=== PATIENT | female | born 1990 | race Caucasian/White ===

== ENCOUNTER 2018-06-07 23:30 | Emergency (ER) | payer OTHER ==
[2018-06-07] MEDS: Nitroglycerin 0.4 MG Tab.SL SL PRN (23:55)
[2018-06-08] MEDS: Nitroglycerin 0.4 MG Tab.SL SL PRN (00:10)
[2018-06-08] MEDS ORDERED: HYDROmorphone 0.5 MG/0.5 ML SYRINGE IVPUSH ONE (00:26)
--- NOTE | 2018-06-08 00:43 | EDM.PDOC ---
ED HPI GENERAL MEDICAL PROBLEM - General Chief Complaint: Chest Pain Stated Complaint: CHEST PAIN Time Seen by Provider: 06/07/18 23:35 Source of Information: Reports: Patient, Family History Limitations: Reports: No Limitations - History of Present Illness INITIAL COMMENTS - FREE TEXT/NARRATIVE: Is a 28-year-old female. For about the last 5 hours she has been having some left sided chest pain going into her left shoulder and down her left arm with numbness and tingling in her entire hand. About an hour and a half prior to coming to the ER she developed some dizziness and sweating along with these symptoms and some nausea but no vomiting. She was somewhat concerned so she comes to the ER for evaluation. The total time she's been having this left-sided chest pain has been for about 5 hours. He describes more of the chest pain as a dull aching sensation. The numbness and tingling that seemed to go down her left arm tend to be starting in the base of the left neck area but she is not really tender there on palpation. Left Shoulder Pain Score (Numeric/FACES): 4 - Related Data Allergies Allergy/AdvReac Type Severity Reaction Status Date / Time amoxicillin Allergy Hives Verified 06/07/18 23:40 methylprednisolone Allergy Tachycardia Verified 06/07/18 23:40 [From Solu-Medrol] Home Meds: Home Meds . 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 Denies: Fever, Chills HEENT: Reports: No Symptoms Respiratory: Denies: Shortness of Breath, Cough Cardiovascular: Reports: Chest Pain, Lightheadedness. Denies: Edema Endocrine: Reports: No Symptoms GI/Abdominal: Reports: Nausea. Denies: Abdominal Pain, Diarrhea, Vomiting : Reports: No Symptoms Musculoskeletal: Reports: No Symptoms Skin: Reports: No Symptoms Neurological: Reports: No Symptoms Psychiatric: Reports: No Symptoms Hematologic/Lymphatic: Reports: No Symptoms ED EXAM, GENERAL - Physical Exam Exam: See Below Exam Limited By: No Limitations General Appearance: Alert, WD/WN, No Apparent Distress Eye Exam: Bilateral Eye: Normal Inspection Ears: Normal External Exam Nose: Normal Inspection Throat/Mouth: Normal Inspection, Normal Lips, Normal Voice, No Airway Compromise Head: Normocephalic Neck: Supple Respiratory/Chest: No Respiratory Distress, Lungs Clear, Normal Breath Sounds Cardiovascular: Regular Rate, Rhythm, No Murmur GI/Abdominal: Soft Back Exam: Full Range of Motion Extremities: Normal Inspection, Normal Range of Motion Neurological: Alert, Oriented Psychiatric: Normal Affect, Normal Mood Skin Exam: Warm, Dry EKG INTERPRETATION EKG Date: 06/07/18 Time: 23:36 EKG Interpretation Comments: Normal sinus rhythm with tachycardia, no acute ST or T-wave elevation, she does have the appearance of diffuse ST depression or possible ischemia but this could be a repolarization abnormality considering her age. Course - Vital Signs Last Recorded V/S: Last Vital Signs Temp 98.1 F 06/07/18 23:35 Pulse 104 H 06/07/18 23:35 Resp 16 06/07/18 23:35 BP 117/66 06/08/18 00:10 Pulse Ox 100 06/07/18 23:35 - Orders/Labs/Meds Orders: Active Orders 24 hr Category Date Time Status EKG 12 Lead [EKG Documentation Completion] [RC] STAT Care 06/07/18 23:48 Active CXR [Chest 1V Frontal] [CR] Stat Exams 06/07/18 23:48 Taken Nitroglycerin [Nitrostat] Med 06/07/18 23:48 Active 0.4 mg SL Q5M PRN Medication Orders Nitroglycerin (Nitrostat) 0.4 mg SL Q5M PRN PRN Reason: Chest Pain Last Admin: 06/08/18 00:10 Dose: 0.4 mg Admin: 06/07/18 23:55 Dose: 0.4 mg Labs: Laboratory Tests 06/07/18 06/07/18 06/08/18 Range/Units 23:45 23:45 01:55 WBC 8.81 (3.98-10.04) K/mm3 RBC 4.84 (3.98-5.22) M/mm3 Hgb 14.1 (11.2-15.7) gm/L Hct 42.3 (34.1-44.9) % MCV 87.4 (79.4-94.8) fl MCH 29.1 (25.6-32.2) pg MCHC 33.3 (32.2-35.5) g/dl RDW Std Deviation 41.5 (36.4-46.3) fL Plt Count 262 (182-369) K/mm3 MPV 9.9 (9.4-12.3) fl Neut % (Auto) 47.6 (34.0-71.1) % Lymph % (Auto) 43.8 (19.3-51.7) % [place] % (Auto) 6.9 (4.7-12.5) % Eos % (Auto) 1.1 (0.7-5.8) Baso % (Auto) 0.5 (0.1-1.2) % Neut # (Auto) 4.19 (1.56-6.13) K/mm3 Lymph # (Auto) 3.86 H (1.18-3.74) K/mm3 [place] # (Auto) 0.61 H (0.24-0.36) K/mm3 Eos # (Auto) 0.10 (0.04-0.36) K/mm3 Baso # (Auto) 0.04 (0.01-0.08) K/mm3 Sodium 142 (136-145) mEq/L Potassium 3.3 L (3.5-5.1) mEq/L Chloride 105 (98-107) mEq/L Carbon Dioxide 24 (21-32) mEq/L Anion Gap 16.3 H (5-15) BUN 17 (7-18) mg/dL Creatinine 1.0 (0.55-1.02) mg/dL Est Cr Clr Drug Dosing 69.28 mL/min Estimated GFR (MDRD) > 60 (>60) mL/min BUN/Creatinine Ratio 17.0 (14-18) Glucose 98 (74-106) mg/dL Calcium 8.7 (8.5-10.1) mg/dL Total Bilirubin 0.2 (0.2-1.0) mg/dL AST 29 (15-37) U/L ALT 30 (14-59) U/L Alkaline Phosphatase 52 (46-116) U/L Troponin I < 0.017 < 0.017 (0.00-0.056) ng/mL Total Protein 7.4 (6.4-8.2) g/dl Albumin 4.2 (3.4-5.0) g/dl Globulin 3.2 gm/dL Albumin/Globulin Ratio 1.3 (1-2) 06/08/18 Range/Units 03:50 WBC (3.98-10.04) K/mm3 RBC (3.98-5.22) M/mm3 Hgb (11.2-15.7) gm/L Hct (34.1-44.9) % MCV (79.4-94.8) fl MCH (25.6-32.2) pg MCHC (32.2-35.5) g/dl RDW Std Deviation (36.4-46.3) fL Plt Count (182-369) K/mm3 MPV (9.4-12.3) fl Neut % (Auto) (34.0-71.1) % Lymph % (Auto) (19.3-51.7) % [place] % (Auto) (4.7-12.5) % Eos % (Auto) (0.7-5.8) Baso % (Auto) (0.1-1.2) % Neut # (Auto) (1.56-6.13) K/mm3 Lymph # (Auto) (1.18-3.74) K/mm3 [place] # (Auto) (0.24-0.36) K/mm3 Eos # (Auto) (0.04-0.36) K/mm3 Baso # (Auto) (0.01-0.08) K/mm3 Sodium (136-145) mEq/L Potassium (3.5-5.1) mEq/L Chloride (98-107) mEq/L Carbon Dioxide (21-32) mEq/L Anion Gap (5-15) BUN (7-18) mg/dL Creatinine (0.55-1.02) mg/dL Est Cr Clr Drug Dosing mL/min Estimated GFR (MDRD) (>60) mL/min BUN/Creatinine Ratio (14-18) Glucose (74-106) mg/dL Calcium (8.5-10.1) mg/dL Total Bilirubin (0.2-1.0) mg/dL AST (15-37) U/L ALT (14-59) U/L Alkaline Phosphatase (46-116) U/L Troponin I < 0.017 (0.00-0.056) ng/mL Total Protein (6.4-8.2) g/dl Albumin (3.4-5.0) g/dl Globulin gm/dL Albumin/Globulin Ratio (1-2) Meds: Medications Generic Name Dose Route Start Last Admin Trade Name Freq PRN Reason Stop Dose Admin Nitroglycerin 0.4 mg 06/07/18 23:48 06/08/18 00:10 Nitrostat SL 0.4 mg Q5M PRN Administration Chest Pain Discontinued Medications Generic Name Dose Route Start Last Admin Trade Name Freq PRN Reason Stop Dose Admin Hydromorphone HCl 0.5 mg 06/08/18 00:26 06/08/18 02:36 Dilaudid IVPUSH 06/08/18 00:27 Not Given ONETIME ONE Lorazepam 0.5 mg 06/08/18 02:34 06/08/18 02:41 Ativan IVPUSH 06/08/18 02:35 0.5 mg ONETIME ONE Administration - Radiology Interpretation Free Text/Narrative:: Chest x-ray does not show any acute changes. - Re-Assessments/Exams Free Text/Narrative Re-Assessment/Exam: 06/08/18 00:44 I spoke to the patient and the family regarding the negative troponin. The nitroglycerin really after 2 of them haven't made much of a difference as far as her arm and now her chest is not really bothering her but she doesn't think is related to the nitroglycerin. 06/08/18 03:16 I spoke to the patient regarding the negative troponin on the second draw. She is a little anxious we gave her some Ativan IV that seemed to calm her down and ease up some of her chest pressure. I did speak to Dr. Kim the catch basin cleaner components engineer at [facility] and explained to him what the EKGs look like with the diffuse ischemia that I thought with repolarization abnormality and after discussing her symptoms and her 2 negative troponin he does not feel the EKG and her symptoms warrant an admission and he is not certain it even is typical of cardiac symptoms. He suggested we get a third troponin and if that is negative despite her continuing dull ache in her left chest that it is unlikely the EKG changes and her chest dullness are related to her cardiac status. He did suggest she follow-up with her family doctor regarding her EKG and additional workup. Did speak to the patient regarding my conversation with Dr. Kim. 06/08/18 05:06 Her third troponin level was negative. I am going to let her go home with her to follow-up with her doctor this coming week. Departure - Departure Time of Disposition: 05:07 Disposition: Home, Self-Care 01 Condition: Good Clinical Impression: Atypical chest pain Referrals: Kimberly Starr MD [Primary Care Provider] - Forms: ED Department Discharge Additional Instructions: Follow-up with your family physician this week for recheck, all 3 troponin levels were negative that we analia through the night, let your physician know that I spoke to Dr. Kim (catch basin cleaner) at [facility] and see what they would like to do to further investigate your EKGs, return to the ER if your symptoms worsen - My Orders Last 24 Hours: My Active Orders 06/07/18 23:48 EKG 12 Lead [EKG Documentation Completion] [RC] STAT CXR [Chest 1V Frontal] [CR] Stat Nitroglycerin [Nitrostat] 0.4 mg SL Q5M PRN - Assessment/Plan Last 24 Hours: My Active Orders 06/07/18 23:48 EKG 12 Lead [EKG Documentation Completion] [RC] STAT CXR [Chest 1V Frontal] [CR] Stat Nitroglycerin [Nitrostat] 0.4 mg SL Q5M PRN
[2018-06-08] MEDS ORDERED: LORazepam 2 MG/ML SDV IVPUSH ONE (02:34)
--- NOTE | 2018-06-09 10:51 | CR ---
Chest: Portable view of the chest was obtained. Comparison: No prior chest x-ray. Heart size and mediastinum are normal. Lungs are clear. Bony structures are unremarkable. Impression: 1. Nothing acute is appreciated on portable chest x-ray. Diagnostic code #1
== END 2018-06-08 05:15 | disposition home or self-care (01) ==
LOC: JD.ED 23:30
DX: R07.89 Other chest pain (principal); R00.0 Tachycardia, unspecified; R42 Dizziness and giddiness
CPT/HCPCS: 36415; 71045; 80053; 84484; 85025; 93005; 96374; 99285; A9270; J2060; 93010; 99284

== ENCOUNTER 2023-04-06 10:48 | Emergency (ER) | payer OTHER | END 2023-04-06 12:17 | disposition home or self-care (01) | LOC: JD.ED 10:48 | DX: S00.83XA Contusion of other part of head, initial encounter (principal); Z88.0 Allergy status to penicillin; W22.09XA Striking against other stationary object, initial encounter | CPT/HCPCS: 70450; 70450-26; 99282; 99283 ==